=== PATIENT | male | born 1995 | race Two or more races ===

== ENCOUNTER 2016-12-12 22:06 | Emergency (ER) | payer BC, OTHER ==
[~2016-12-12] VITALS: Ht 170.2 cm; Wt 85.3 kg
[~2016-12-12 22:06] MED LIST: IBUPROFEN600 MG ORAL
[2016-12-12] MEDS ORDERED: ROBAXIN-750750 MG PO (23:54)
[2016-12-12] MEDS ORDERED: IBUPROFEN600 MG ORAL (23:54)
[2016-12-13] MEDS ORDERED: Ketorolac 60mg Inj IM ONE
[2016-12-13] MEDS ORDERED: Methocarbamol 750mg tab ORAL ONE
[2016-12-13 00:12] VITALS: BP 109/75
[2016-12-13 00:13] VITALS: BP 109/75
--- NOTE | 2016-12-13 01:02 | Emergency Room Report ---
History of Present Illness General Chief Complaint: Back Pain-No Injury Source: Patient Present Illness [facility] 21YOM [employer] patient with 4 days lower back pain after long bike ride. Denies lower extremity weakness, urinary incontinence, IVDU, cancer history Not taking OTC meds Icing with mild improvement Denies trauma Allergies: Coded Allergies: NO KNOWN ALLERGIES (Unverified Allergy, Unknown, 06/02/15) Nursing Documentation-PMH Past Medical History: No Stated History Review of Systems All Other Systems: negative except mentioned in [facility] Physical Exam Vital Signs Date Time Temp Pulse Resp B/P Pulse Ox O2 Delivery O2 Flow Rate FiO2 12/12/16 22:48 98.4 58 17 122/73 97 Room Air Sp02 EP Interpretation: reviewed, normal General Appearance: normal inspection, well appearing, no apparent distress, alert, GCS 15, non-toxic Head: normocephalic, atraumatic Eyes: bilateral eye EOMI, bilateral eye PERRL ENT: normal ENT inspection, hearing grossly normal, normal voice Neck: normal inspection, full range of motion, supple, no bony tend Respiratory: normal inspection, lungs clear, normal breath sounds, no respiratory distress, no retraction, no wheezing Cardiovascular #1: regular rate, rhythm, no edema Gastrointestinal: normal inspection, normal bowel sounds, non tender, soft, no guarding, no hernia Genitourinary: no CVA tenderness Musculoskeletal: normal inspection, back normal, normal range of motion, Penny' s Sign negative, other - No trauma. Very mild generlized ttp to lower back Neurologic: normal inspection, alert, oriented x3, responsive, yeast maker III-XII nml as tested, speech normal Psychiatric: normal inspection, judgement/insight normal, mood/affect normal Skin: normal inspection, normal color, no rash Medical Decision Making Diagnostic Impression: Primary Impression: Back pain Qualified Codes: M54.5 - Low back pain ER Course A: low suspicion for cord compression given well appearance, bilateral paravertebral ttp, no focal neuro deficits, absence of midline ttp/masses and pain worse with movement with known exacerbating activity Atraumatic Robaxin, Ibuprofen given in ED with Rx for both Advised PMD followup DC home Last Vital Signs Date Time Temp Pulse Resp B/P Pulse Ox O2 Delivery O2 Flow Rate FiO2 12/13/16 00:13 98.4 60 17 109/75 99 Room Air Status: improved Disposition: HOME, SELF-CARE Condition: Improved Scripts Ibuprofen* (MOTRIN*) 600 Mg Tablet 600 MG ORAL THREE TIMES A DAY for For Pain for 7 Days, #30 TAB 0 Refills Prov: REMINGTON JACKSON M.D. 12/12/16 Methocarbamol* (ROBAXIN-750*) 750 Mg Tablet 750 MG PO TID for 7 Days, #30 TAB 0 Refills Prov: REMINGTON JACKSON M.D. 12/12/16 Referrals: Marie STRAUSS,REFERRING (PCP) Patient Instructions: Back Pain, Adult REMINGTON JACKSON M.D. Dec 13, 2016 01:02
== END 2016-12-13 00:13 | disposition home or self-care (01) ==
LOC: EMR 22:35
DX: M54.5 Low back pain (principal)
CPT/HCPCS: 96372; 99284